=== PATIENT | female | born 1985 | race Caucasian/White ===

== ENCOUNTER 2020-05-28 14:16 | Emergency (ER) | payer OTHER, SELFPAY ==
--- NOTE | ~2020-05-28 | XR_ITS ---
EXAMINATION: XR ankle RT min 3V INDICATION: Right ankle pain and deformity, initial encounter TECHNIQUE: Three views of the right ankle are obtained. COMPARISON: None available FINDINGS: There is an acute, traumatic, closed, oblique fracture of the distal fibula extending to th e level of the tibial plafond. There is lateral and posterior subluxation of the talus with respect t o the distal tibia. The posterior malleolus of the distal tibia appears to be fractured. No additiona l acute osseous abnormality is identified. Ankle soft tissue swelling is present. IMPRESSION: 1. Distal fibular fracture with tibiotalar subluxation and possible posterior malleolus fracture. Reviewed, dictated and finalized at location A. ETIC TESTING TECHNICIAN IMPRESSION: 1. Distal fibular fracture with tibiotalar subluxation and possible posterior m alleolus fracture.
--- NOTE | ~2020-05-28 | XR_ITS ---
EXAMINATION: XR ankle RT 2V DATE: 05/28/2020 15:54 INDICATION: Right ankle fracture status post reduction. TECHNIQUE: 2 views of right ankle were obtained. COMPARISON: Right ankle radiographs at 2:39 PM FINDINGS: There is an oblique fracture of distal fibula with anteromedial aspect of the fracture line 2 mm proximal to the level of the tibial plafond. The distal fracture fragment demonstrates 5 mm pos terior displacement and 2 mm lateral displacement. There is lateral subluxation of talus with respect to tibial plafond with widening of the medial joint space, consistent with deltoid ligament tear. Th ere is a nondisplaced fracture of posterior malleolus. Other joint spaces are normal. There is an ent hesophyte at posterior aspect of calcaneal tuberosity. Ankle soft tissue swelling is noted. Cast mate rial is noted. IMPRESSION: 1. Oblique fracture of distal fibula with improvement in alignment. 2. Complete tear of the deltoid ligament with improved lateral subluxation of talus with respect to d istal tibia. 3. Nonspecific fracture of posterior malleolus. Reviewed, dictated and finalized at location A. IANCE INSTALLER IMPRESSION: 1. Oblique fracture of distal fibula with improvement in alignment. 2. Complete tear of the deltoid ligament with improved lateral subluxation of t alus with respect to distal tibia. 3. Nonspecific fracture of posterior malleolus.
--- NOTE | ~2020-05-28 | XR_ITS ---
EXAMINATION: XR hip RT 2V w AP pelvis DATE: 05/28/2020 17:34 INDICATION: Right hip pain. TECHNIQUE: Anteroposterior view of the pelvis and anteroposterior and cross-table lateral views of th e right hip were obtained. COMPARISON: None. FINDINGS: Alignment is normal. No fracture. Joint spaces are normal. Soft tissues are unremarkable. IMPRESSION: 1. Negative right hip and pelvis radiographs. Reviewed, dictated and finalized at location A. LOADER
--- NOTE | ~2020-05-28 | XR_ITS ---
EXAMINATION: XR ankle RT 2V DATE: 05/28/2020 17:34 INDICATION: Postreduction right ankle fracture TECHNIQUE: Anteroposterior and lateral views of the right ankle were obtained. COMPARISON: None. FINDINGS: Reduction of the prior lateral displacement of the oblique medial malleolar fracture with no change i n the 2 cortical widths of posterior displacement. The lateral subluxation of the talar dome with res pect to the tibial plafond and has decreased to a similar degree with the medial clear space decrease d from 17 to 13 mm. No other fractures identified. Joint spaces at the right foot appear relatively p reserved. IMPRESSION: 1. Slight improvement in alignment post reduction and splinting of the right lateral malleolar fractu re. 2. Disruption of the deltoid ligaments with similar mild improvement in degree of lateral subluxation of the talar dome with persistently widened medial clear space. Reviewed, dictated and finalized at location A. ECTIONS COUNSELOR IMPRESSION: 1. Slight improvement in alignment post reduction and splinting of the right la teral malleolar fracture. 2. Disruption of the deltoid ligaments with similar mild improvement in degree of lateral subluxation of the talar dome with persistently widened medial clear space.
[2020-05-28 14:31] VITALS: BP 127/84; PULSE 88; RESP 18; TEMP 36.9; O2SAT 99
--- NOTE | 2020-05-28 14:31 | ED.LOWEXIN ---
HPI - Extremity Injury (Lower) General Chief Complaint: Extremity Injury, Lower Stated Complaint: RLL INJURY Time Seen by Provider: 05/28/20 14:26 History of Present Illness HPI Narrative: 34 year female brought in by EMS from home for an ankle injury. She was walking when she stepped into a hole and turned her right ankle. She was noted to have an obvious deformity. She received 100mcg of fentanyl with only mild improvement in the pain. She also has pain in the right hip. No wounds. Related Data Home Medications Medication Instructions Recorded Confirmed metoprolol succinate 25 mg capsule 25 mg PO DAILY 09/19/19 sprinkle, ext. release 24 hr Allergies Allergy/AdvReac Type Severity Reaction Status Date / Time Penicillins Allergy Unknown Other Verified 05/28/20 14:46 Review of Systems Review of Systems: All systems reviewed & are unremarkable except as noted in HPI and below Constitutional: Constitutional: Denies fever(s) and Denies weakness Cardiovascular: Cardiovascular: Denies chest pain Respiratory: Respiratory: Denies dyspnea Neurologic: Denies confusion, Denies numbness and Denies weakness Psychiatric: Psychiatric: Reports anxiety PMFSH Past Medical History Medical History Family hx of ALS (amyotrophic lateral sclerosis) Generalized anxiety disorder Intermittent palpitations Surgical History Surgical History S/P partial hysterectomy Family History Family History Grandparent Diabetes mellitus Family history of obesity Hypertension Family history of cardiovascular disease Sibling Family history of attention deficit hyperactivity disorder (ADHD) Mother Family history of thyroid disease Social History Social History Smoking status: Never smoker Alcohol intake: current Exam Const: General: healthy appearing and alert Orientation/consciousness: patient oriented x3 Other: Mild distress HENMT: Head: normal to inspection Resp: Effort & Inspection: normal respiratory effort Auscultation: clear to auscultation bilaterally Cardio: Rate: tachycardic Rhythm: regular rhythm GI: GI Palp: Yes Soft to palpation and No Tenderness to palpation present (GI) Skin: General skin exam: normal color Wounds: no wounds Neuro: General: patient oriented x3, moves all extremities and no focal motor deficits Speech: normal speech Extrem: Other: Deformity of right ankle. Pain in right hip without other abnormality on exam. Psych: Affect: Anxious affect present Course Vital Signs Vital signs: Vital Signs Temperature 36.9 C 05/28/20 14:31 Pulse Rate 88 05/28/20 14:31 Respiratory Rate 18 05/28/20 14:31 Blood Pressure 127/84 05/28/20 14:31 Pulse Oximetry 99 05/28/20 14:31 Temperature 36.9 C 05/28/20 14:31 Pulse Rate 73 05/28/20 19:22 Respiratory Rate 18 05/28/20 19:22 Blood Pressure 110/74 05/28/20 19:22 Pulse Oximetry 99 05/28/20 19:22 Procedures Orthopedic Joint Reduction Joint #1: Side: right Joint Reduction Location: ankle Pre-Procedure Neuro Vascular Exam: normal Local Anesthesia: lidocaine 1% Amount of anesthesic used (mL): 15 Technique used: direct manipulation Post-reduction neuro exam: intact Post-reduction vascular: intact Post Reduction X-Ray Obtained: Yes Post Reduction X-Ray Results: other (Joint reduced, fracture partially reduced. Further improved after second attempt) Splint Applied: Yes Patient Tolerated Procedure: well Orthopedic Splinting/Casting Injury #1: Side: right Splint: customized in ED OCL: short leg Pre-Procedure Neuro Vascular Exam: normal Post-Procedure Neuro Vascular Exam: normal
[2020-05-28] MEDS: HYDROmorphone HCL INJ (*CRX) 1 MG/ML SYR IV PUSH (14:42)
--- NOTE | 2020-05-28 14:54 | PC.NURSE ---
When patient was rolling onto her back for xray, pt stated it feels like my hip is dislocated. Per patient she has a history of her hip dislocated. Dr. Leone made aware.
[2020-05-28] MEDS: fentaNYL CITRATE INJ (*CRX) 100 MCG/2 ML VIAL 50 MCG IV PUSH (15:02)
[2020-05-28 15:55] VITALS: BP 106/51; PULSE 81; RESP 16; O2SAT 100
[2020-05-28] MEDS: HYDROmorphone HCL INJ (*CRX) 1 MG/ML SYR 0.5 MG IV PUSH (16:42)
[2020-05-28 18:30] VITALS: BP 118/70; PULSE 66; RESP 18; O2SAT 100
[2020-05-28] MEDS: HYDROcodone/acetaminophen (*CRX) 5-325 MG TABLET 1 TAB PO (18:40)
[2020-05-28] MEDS: KETOROLAC 30 MG/ML VIAL (*BKC) IV PUSH (18:41)
[2020-05-28 19:22] VITALS: BP 110/74; PULSE 73; RESP 18; O2SAT 99
== END 2020-05-28 19:25 | disposition home or self-care (01) ==
PROVIDERS: Emergency Provider Emergency Medicine
DX: S82.61XA Displaced fracture of lateral malleolus of right fibula, initial encounter for closed fracture (principal); S82.54XA Nondisplaced fracture of medial malleolus of right tibia, initial encounter for closed fracture; S93.421A Sprain of deltoid ligament of right ankle, initial encounter; X50.9XXA Other and unspecified overexertion or strenuous movements or postures, initial encounter
CPT/HCPCS: 27788; 73502; 73600; 73610; 96374; 96375; 96376; 99285; A9270; J1170; J1885; J3010

== ENCOUNTER 2020-07-17 10:20 | Outpatient (CLI) | payer OTHER, SELFPAY ==
--- NOTE | ~2020-07-17 | US_ITS ---
EXAMINATION: US venous doppler LE RT EXAM DATE: 07/17/2020 10:54 INDICATION: Right leg swelling. TECHNIQUE: Multiple grayscale, color flow and Doppler images of the right lower extremity deep venous system were obtained and reviewed. There is no prior study for comparison. FINDINGS: The right common femoral, femoral and profunda veins demonstrate normal color flow, respira tory variation, augmentation and compressibility. Compressibility, color flow confirmed within the r ight popliteal, posterior tibial, peroneal, and greater saphenous veins. IMPRESSION: 1. No right lower extremity deep venous thrombosis. Reviewed, dictated and finalized at location A. AGE HANDLING SUPERVISOR
== END 2020-07-17 10:21 | disposition home or self-care (01) ==
DX: M79.669 Pain in unspecified lower leg (principal)
CPT/HCPCS: 93971

== ENCOUNTER 2020-11-07 08:49 | Emergency (ER) | payer OTHER, SELFPAY ==
--- NOTE | ~2020-11-07 | XR_ITS ---
EXAMINATION: XR chest 2V DATE: 11/07/2020 09:11 INDICATION: Mid chest pain TECHNIQUE: AP and lateral views of the chest are obtained. COMPARISON: None available FINDINGS: The lungs are free of acute opacities. There is no pleural effusion or pneumothorax. The ca rdiomediastinal silhouette is normal. The visualized bones and soft tissues are unremarkable. IMPRESSION: 1. No acute cardiopulmonary abnormality. Reviewed, dictated and finalized at location A.
[2020-11-07 08:52] VITALS: BP 137/77; PULSE 83; RESP 18; TEMP 37.1; O2SAT 100
--- NOTE | 2020-11-07 08:55 | ECG_ITS ---
Measurements Intervals [place] Rate: 83 P: 57 MA: 144 QRS: 23 QRSD: 89 T: 29 QT: 408 QTc: 482 Interpretive Statements SINUS RHYTHM BASELINE ARTIFACT- II, III, AVR, AVL, AVF, V1, V3-V6 NORMAL ECG Electronically Signed On 11-07-2020 9:08:21 CDT by Daryn Skelton D.O.
[2020-11-07 09:22] LABS: Basophils Absolute Auto 0.1 K/mm3 (0.0-0.1); Basophils Percent Auto 0.7 % (0.2-1.2); Eosinophils Absolute Auto 0.2 K/mm3 (0-0.3); Eosinophils Percent Auto 2.5 % (0-4.4); Hematocrit 41.8 % (37.0-47.0); Hemoglobin 14.1 g/dL (12.0-15.0); Immature Granulocyte Absolute 0.02 K/mm3 (0.00-0.031); Immature Granulocyte Percent A 0.3 % (0-0.5); Lymphocytes Absolute Auto 3.15 K/mm3 (0.9-3.2); Lymphocytes Percent Auto 41.2 % (18.3-44.2); Mean Corpuscular HGB Conc 33.7 g/dl (32-36); Mean Corpuscular Hemoglobin 30.1 pg (26-34); Mean Corpuscular Volume 89.1 fl (80-100); Mean Platelet Volume 9.8 fl (7.4-10.4); Monocytes Absolute Auto 0.5 K/mm3 (0.1-0.6); Monocytes Percent Auto 6.8 % (2.6-8.5); Neutrophils Absolute Auto 3.7 K/mm3 (1.3-6.7); Neutrophils Percent Auto 48.5 % (45.5-73.1); Platelet Count Result 276 k/mm3 (150-375); Red Blood Count 4.69 M/mm3 (4.2-5.4); Red Cell Distribution Width 12.3 % (11.5-14.5); White Blood Count 7.6 K/mm3 (4.5-10.0)
[2020-11-07 09:31] LABS: INR 0.9; Prothrombin Time 12.2 Seconds (11.1-14.7)
[2020-11-07 09:32] LABS: Anion Gap 7 mmol/L (8-16); Blood Urea Nitrogen 10 mg/dL (7-17); Calcium 9.3 mg/dL (8.4-10.2); Carbon Dioxide 26 mmol/L (22-30); Chloride 106 mmol/L (98-107); Estimated CRCL calculation 102 ml/min; Estimated Glomerular Filt Rate > 60; Glucose 110 mg/dL (65-105); Sodium 139 mmol/L (137-145)
[2020-11-07 09:44] LABS: Troponin I < 0.012 ng/mL (0.000-0.034)
--- NOTE | 2020-11-07 09:48 | PC.NURSE ---
4mg zofran and GI cocktail given per EDP Keen by verbal order read back.
[2020-11-07] MEDS: ONDANSETRON INJ 4 MG/2 ML VIAL IV PUSH (09:54)
[2020-11-07] MEDS: SODIUM CHLORIDE 0.9% IV 1,000 ML 999 ML IV CONT (09:54)
[2020-11-07] MEDS: BELLADONNA ALK/PHENOB ELIX 10 ML, MAG HYDROX/ALUMINUM HYD/SIMETH 30 ML, LIDOCAINE HCL 2... PO (09:55)
[2020-11-07 10:00] VITALS: BP 120/80; PULSE 85; RESP 15; O2SAT 99
[2020-11-07 10:53] LABS: D Dimer 0.33 ug/mL (<0.48)
--- NOTE | 2020-11-07 10:53 | ED.CHESTPAIN ---
HPI - Chest Pain General Chief Complaint: Chest Pain Stated Complaint: chest pain Time Seen by Provider: 11/07/20 09:01 Source: patient Mode of arrival: ambulatory Limitations: no limitations History of Present Illness HPI narrative: Patient is a 35-year-old female who presents complaining of sudden onset of chest pain this a.m. while brushing teeth. Patient reports pain radiates from epigastrium to right jaw. She denies shortness of breath. Reports a history of GERD. She reports that she takes metoprolol for irregular heartbeat but was recently taken off of medication in the past 6 months. She denies taking medication prior to arrival. MD complaint: chest pain Related Data Home Medications Medication Instructions Recorded Confirmed metoprolol succinate 25 mg capsule 25 mg PO DAILY 09/19/19 sprinkle, ext. release 24 hr Allergies Allergy/AdvReac Type Severity Reaction Status Date / Time Penicillins Allergy Unknown Other Verified 05/28/20 14:46 Review of Systems Review of Systems: Narrative: CONSTITUTIONAL: Denies fever, chills, or sweats. EYES: Denies visual changes, redness, or discharge. ENT: Denies rhinorrhea, congestion, sore throat, or otalgia. CARDIOVASCULAR: Reports chest pain/epigastric, denies palpitations, or edema. RESPIRATORY: Denies cough or dyspnea. GASTROINTESTINAL: Denies abdominal pain, nausea, vomiting, or diarrhea. GENITOURINARY: Denies dysuria or hematuria. SKIN: Denies rash or itching. MUSCULOSKELETAL: Denies back pain, joint pain, or myalgia. NEUROLOGIC: Denies headache, numbness, dizziness, or weakness. PSYCHIATRIC: Denies anxiety or depression. [facility] Past Medical History Medical History Family hx of ALS (amyotrophic lateral sclerosis) Generalized anxiety disorder Intermittent palpitations Surgical History Surgical History S/P partial hysterectomy Family History Family History Grandparent Diabetes mellitus Family history of obesity Hypertension Family history of cardiovascular disease Sibling Family history of attention deficit hyperactivity disorder (ADHD) Mother Family history of thyroid disease Social History Social History (Updated 11/07/20 @ 10:56 by HALLIE Martins) Smoking status: Never smoker Alcohol intake: current Alcohol use details: Occasional Substance use: never Living arrangements: with family Comments At the time of signature, I have reviewed and agree with nursing past medical, surgical, social, and family history unless otherwise noted. Please see nursing chart for further information. There is no relevant family history pertinent to the presenting complaint. Exam Narrative: Exam Narrative: GENERAL: Well-appearing, well-nourished, and in no acute distress. HEAD: Normocephalic, atraumatic. EYES: EOMI. No redness or drainage. Conjunctiva are normal. ENT: Mucous membranes pink and moist. CHEST: No respiratory distress. Clear to auscultation. HEART: Regular rate and rhythm. No murmur appreciated. Normal peripheral pulses. GI: Soft, nontender without rebound, or guarding. No distention. Bowel sounds normal in all quadrants. MUSCULOSKELETAL: No bony tenderness. EXTREMITIES: Normal range of motion. No edema. SKIN: Warm, dry, no rash. NEURO: No focal deficits. Alert and oriented x3. Gait steady. PSYCH: Normal affect. No signs of depression or anxiety. Course Reevaluation(s) Reevaluation #1: Patient denies pain or complaints at this time, reports she feels much better after GI cocktail. Date: 11/07/20 Time: 12:35 Vital Signs Vital signs: Vital Signs Temperature 37.1 C 11/07/20 08:52 Pulse Rate 83 11/07/20 08:52 Respiratory Rate 18 11/07/20 08:52 Blood Pressure 137/77 11/07/20 08:52 Pulse Oximetry 100 11/07/20 08:52 Temperature
[2020-11-07 11:09] VITALS: PULSE 62
[2020-11-07 11:18] VITALS: BP 109/64; PULSE 60; RESP 15; O2SAT 100
[2020-11-07 12:45] LABS: Troponin I 0.013 ng/mL (0.000-0.034)
[2020-11-07 12:55] VITALS: BP 111/75; PULSE 74; RESP 21; O2SAT 100
== END 2020-11-07 12:57 | disposition home or self-care (01) ==
PROVIDERS: Emergency Medicine; Emergency Provider Nurse Practitioner; PCP Registered Nurse
DX: K21.9 Gastro-esophageal reflux disease without esophagitis (principal)
CPT/HCPCS: 36415; 71046; 80048; 84484; 85025; 85380; 85610; 85730; 93005; 96361; 96374; 99284; A9270; J2405; J7030